=== PATIENT | male | born 2000 | race Caucasian/White ===

== ENCOUNTER 2018-12-10 00:30 | Emergency (ER) | payer SELFPAY ==
[~2018-12-10] VITALS: Ht 175.2 cm; Wt 140.6 kg
[2018-12-10 00:34] VITALS: BP 151/87
== END 2018-12-10 02:20 | disposition home or self-care (01) ==
LOC: ED 00:30
DX: S69.91XA Unspecified injury of right wrist, hand and finger(s), initial encounter (principal); R45.4 Irritability and anger; W22.01XA Walked into wall, initial encounter; Y93.89 Activity, other specified; Y92.098 Other place in other non-institutional residence as the place of occurrence of the external cause; Y99.9 Unspecified external cause status